=== PATIENT | female | born 1970 | race Caucasian/White ===

== ENCOUNTER 2023-12-18 08:00 | Emergency (ER) | payer BC, SELFPAY ==
[2023-12-18] VITALS (11 sets, daily range): BP systolic 103–158; BP diastolic 62–115; BMI 40.1
[2023-12-18] MEDS: ZOFRAN 4 MG IV (08:17)
--- NOTE | 2023-12-18 08:18 | ED.GENMED ---
History of Present Illness
General
Chief Complaint: Chest Pain
Source: patient
Exam Limitations: none
Time Seen by Provider: 12/18/23 08:05
Travel History
Have you had any contact with someone who has COVID-19?: No
Do you have any symptoms of coronavirus? Fever > 100 degrees, chills, cough, shortness of breath, sore throat, loss of taste or smell, muscle aches, or headache?: No
History of Present Illness
History of Present Illness:
53-year-old female presents with onset of lower chest pain that radiates around in a bandlike fashion to her back and up to her scapula. She denies shortness of breath but occasionally it is made worse with deep breathing. She does not take any
medications and has no allergies. Of note, 3 weeks ago she fractured her right ankle and she has been in orthopedic boot since. She received full aspirin en route. She denies numbness to the extremities. No other complaints at this time
Phy Exam
Physical Exam
Physical Exam:
General: Uncomfortable appearing female
HEENT: Normocephalic atraumatic
Heart: Regular rate and rhythm no murmurs
Lungs: Clear no wheeze abdomen soft slightly tender to the epigastric and right upper quadrant
No guarding or rebound normal bowel sounds
Vascular: Symmetric 2+ radial pulses bilaterally
Scores
Heart Score for Chest Pain Patients
STEMI patient?: No
History: Slightly or Non-Suspicious
ECG: Normal
Age: >45 - <65 years
Risk Factors: No Risk Factors
Troponin: </= Normal Limit
Heart Score for Chest Pain Patients: 1
Heart Score Risk: 2.5% MACE over next 6 weeks
Course
Orders/Labs/Results
Orders:
Orders
12/18/23 08:01
Electrocardiogram (*1) Urgent
Reason for Study: Chest Pain
EKG- Treatment ONCE
12/18/23 08:08
CT Chest Pe Study Urgent
Comment:
Reason For Exam: chest pain
Ondansetron Injectable [Zofran] 4 mg IV NOW STA
12/18/23 08:14
Complete Blood Count/With Diff Urgent
Troponin I Urgent
12/18/23 08:38
Basic Metabolic Panel Urgent
Lipase Urgent
12/18/23 09:13
Knnwv-Juye-Wpkgvay Urgent
Comment: ADD ON
Potassium Urgent
12/18/23 10:48
Add On- LAB Urgent
Tests Added?: LFT
12/18/23 11:19
Troponin I Urgent
12/18/23 12:59
Famotidine [Pepcid] 20 mg IV NOW STA
US Abdomen Complete/Upper Urgent
Comment:
Reason For Exam: ruq pain
Abnormal Lab Results
12/18/23 12/18/23 12/18/23
08:14 08:38 09:13
MCHC 32.6 L g/dL
(33.0-37.0)
RDW 15.4 H %
(11.5-14.5)
MPV 10.5 H fL
(7.4-10.4)
Chloride 109 H mmol/L
(98-107)
Creatinine 0.5 L mg/dL
(0.6-1.0)
Glucose 138 H mg/dl
(70-99)
AST 38 H U/L
(14-36)
ALT 47 H U/L
(0-35)
12/18/23 08:14
12/18/23 09:13
Vital Signs
Initial and Last Documented VS:
Initial Vital Signs
Temp Pulse Resp BP Pulse Ox
98.2 F 101 18 158/115 98
12/18/23 08:02 12/18/23 08:02 12/18/23 08:02 12/18/23 08:02 12/18/23 08:02
Last Documented Vital Signs
Temp Pulse Resp BP Pulse Ox
98.2 F 68 17 116/66 96
12/18/23 08:02 12/18/23 15:15 12/18/23 09:00 12/18/23 15:00 12/18/23 15:15
MDM/Problems Addressed
Differential Diagnosis Includes:
Epigastric and chest pain. Consider ACS versus PE versus dissection. Pancreatitis or biliary colic also in the differential. Given recent immobilization of an extremity concern for thrombotic event. PE study ordered. EG through triage shows
sinus rhythm with a rate of 96 without ischemic changes. Check labs including lipase and troponin. Zofran ordered for nausea
*Critical Care Note
Total Time (30-74mins, 75-104mins- exclusive of procedures): Not Applicable
Update Note
Update Note:
Initial cardiac workup with troponin x 2 is undetectable. PE study was also reviewed and is negative for acute finding. Patient notes persistent epigastric discomfort. Reexamined. Still slightly tender to the epigastric and right upper quadrant.
Transaminases very subtly bumped. Ultrasound abdomen pending. Pepcid ordered. Question biliary colic versus GERD. But no imminent sign of ACS PE or dissection causing her symptoms.
Ultrasound shows gallbladder sludge without cholecystitis. Patient feeling a little better after the Pepcid. Suspect underlying gastritis secondary to recent naproxen use for ankle fracture. Reassuring workup otherwise. Recommend follow-up with
family doctor. Recommend PPI as outpatient.
ED Attending Note
-
Portions of this chart may have been created with voice recognition software.� Occasional wrong word or��sound alike� substitutions may have occurred due to the inherent limitations of voice recognition software.
Discharge Plan
Departure
Patient Disposition: Home (Routine Discharge)
Date of Disposition: 12/18/23
Time of Disposition: 16:02
Patient with high blood pressure during this ER visit?: No
Discharge Problem:
Abdominal pain
Instructions: Acid Reflux and GERD in Adults (DC)
Prescriptions:
No Action
No Current Medications
0
Referrals:
Marlee Hendricks NP [Family Provider] -
Activity Restrictions/Additional Instructions:
Use Prilosec [id number]. Please return here for worsening symptoms otherwise follow-up with family doctor
Interventions
Interventions:
*Risk Screen - Suicide Last Done: 12/18/23 08:02
*General Assessment Last Done: 12/18/23 08:02
*Neglect/Abuse Screening Last Done: 12/18/23 08:02
ED- Fall Risk Assessment Last Done: 12/18/23 08:02
ED- Cardiac Assessment Last Done: 12/18/23 08:02
Discharge Date and Time
Print Language: [id number]
[2023-12-18 08:21] LABS: % Basophils 0.6 % (0-2); % Eosinophils 1.8 % (0-6); % Immature Granulocytes 0.1 % (0-0.5); % Lymphocytes 32.6 % (20.5-51.1); % Monocytes 6.5 % (1.7-9.3); % Neutrophils 58.4 % (42.2-75.2); Absolute Eosinophils 0.1 10^3/uL (0-0.7); Absolute Lymphocytes 2.4 10^3/uL (1.2-3.4); Absolute Monocytes 0.5 10^3/uL (0.1-0.6); Absolute Neutrophils 4.2 10^3/uL (1.4-6.5); Hematocrit 38.3 % (37.0-47.0); Hemoglobin 12.5 g/dL (12.0-16.0); Mean Corp Hgb Conc. 32.6 g/dL (33.0-37.0); Mean Corpuscular Hgb 27.7 pg (27.0-31.0); Mean Corpuscular Volume 84.7 fL (81.0-99.0); Mean Platelet Volume 10.5 fL (7.4-10.4); Nucleated Red Blood Cells % 0 %; Platelet Count 283 10^3/uL (130-400); Red Blood Cell Count 4.52 10^6/uL (4.20-5.40); Red Cell Dist. Width 15.4 % (11.5-14.5); White Blood Cell Count 7.2 10^3/uL (4.8-10.8)
[2023-12-18 08:49] LABS: Troponin I < 0.012 ng/ml
[2023-12-18 09:02] LABS: Blood Urea Nitrogen 15 mg/dl (7-17); Calcium 9.7 mg/dl (8.4-10.2); Carbon Dioxide 25 mmol/L (22-30); Chloride 109 mmol/L (98-107); Estimated Creatinine Clearance > 125 ml/min; Glucose 138 mg/dl (70-99); Lipase 82 U/L (23-300); Sodium 137 mmol/L (135-145); eGFR > 60.00
[2023-12-18 09:42] LABS: Potassium 4.3 mmol/L (3.5-5.1)
[2023-12-18 11:47] LABS: ALT (SGPT) 47 U/L (0-35); AST (SGOT) 38 U/L (14-36); Albumin 3.7 g/dl (3.5-5.0); Alkaline Phosphatase 77 U/L (38-126); Direct Bilirubin 0.3 mg/dl (0.0-0.4); Total Bilirubin 0.5 mg/dl (0.2-1.3); Total Protein 6.5 g/dl (6.3-8.2)
[2023-12-18 12:07] LABS: Troponin I < 0.012 ng/ml
[2023-12-18] MEDS: PEPCID 20 MG IV (13:27)
== END 2023-12-18 17:04 | disposition home or self-care (01) ==
LOC: EMR 08:00
PROVIDERS: Physician Assistant; EMERGENCY PHYSICIAN Emergency Medicine; FAMILY PHYSICIAN Nurse Practitioner Adult Health
DX: R10.13 Epigastric pain (principal); R10.11 Right upper quadrant pain
CPT/HCPCS: 99285; 96374; 96375; 71275; 76700; 80048; 80076; 83690; 84132; 84484; 85025; 93005; Q9967